=== PATIENT | male | born 1985 | race African-American/Black ===

== ENCOUNTER → 2021-12-01 | Outpatient (CLI) | payer OTHER | LOC: COL.RAD 13:22 | DX: B18.1 Chronic viral hepatitis B without delta-agent (principal) ==

== ENCOUNTER → 2022-08-02 | Outpatient (CLI) | payer OTHER | LOC: COL.RAD 06:56 | DX: B18.1 Chronic viral hepatitis B without delta-agent (principal); R94.5 Abnormal results of liver function studies ==